=== PATIENT | female | born 1990 ===

== ENCOUNTER 2023-09-06 13:30 | Outpatient (CLI) | payer OTHER | END 2023-09-06 13:32 | disposition home or self-care (01) | LOC: PRENATAL 13:30 | PROVIDERS: ATTEND Obstetrics & Gynecology Maternal & Fetal Medicine | DX: O36.80X0 Pregnancy with inconclusive fetal viability, not applicable or unspecified (principal); Z36.82 Encounter for antenatal screening for nuchal translucency; O34.219 Maternal care for unspecified type scar from previous cesarean delivery; Z3A.14 14 weeks gestation of pregnancy ==

== ENCOUNTER 2023-09-27 09:34 | Outpatient (CLI) | payer OTHER | END 2023-09-27 09:37 | disposition home or self-care (01) | LOC: PRENATAL 09:34 | PROVIDERS: ATTEND Obstetrics & Gynecology Maternal & Fetal Medicine | DX: O28.3 Abnormal ultrasonic finding on antenatal screening of mother (principal); O28.5 Abnormal chromosomal and genetic finding on antenatal screening of mother; Z3A.17 17 weeks gestation of pregnancy ==

== ENCOUNTER 2023-10-09 12:50 | Outpatient (CLI) | payer OTHER | END 2023-10-09 12:51 | disposition home or self-care (01) | LOC: PRENATAL 12:50 | PROVIDERS: ATTEND Obstetrics & Gynecology Maternal & Fetal Medicine | DX: O35.9XX0 Maternal care for (suspected) fetal abnormality and damage, unspecified, not applicable or unspecified (principal); O35.3XX0 Maternal care for (suspected) damage to fetus from viral disease in mother, not applicable or unspecified; O09.219 Supervision of pregnancy with history of pre-term labor, unspecified trimester; O34.219 Maternal care for unspecified type scar from previous cesarean delivery; Z3A.19 19 weeks gestation of pregnancy ==